=== PATIENT | male | born 1975 | race Caucasian/White ===

== ENCOUNTER 2018-01-27 17:49 | Emergency (ER) | payer OTHER ==
[2018-01-27 17:58] VITALS: BP 129/79; BMI 32.3
--- NOTE | 2018-01-27 18:30 | DR.EXTPAIN ---
HPI - Time seen Time seen: 18:15 - PCP Primary Care Physician: VIOLETA (ROSEY) - HPI Comment HPI Comment: NO LOC. HAD GI BLEED FIRST DAY THAT IS RESOLVE. MILD LEFT SIDED ABDOMINAL PAIN. - Complaint/Symptoms Chief Complaint Doctor Comments: FELL 2 DAYS AGO. PAIN MID BACK, CHEST AND LEFT ABDOMEN. Chief Complaint:: PT C/O FALLING 7 FT OFF A LADDER ONTO A WALL. PT STATES HE IS HURTING MID THROACIC AREA, LT RIBS, AND LUNG (HAVING TROUBLE BREATHING). PT STATES THIS HAPPENED 2 DAYS AGO. PT STATES HE HAS BEEN HAVING PAIN WHEN TAKING A DEEO BREATH AND HE ALSO STATES HE WAS PASSING LOTS OF BLOOD IN HIS STOOL, BUT IT HAS SENSE STOPPED - Nurses notes reviewed Nurses Notes Review: Yes - Source History Provided: Patient - Mode of arrival Mode of Arrival: Ambulatory - Timing Onset of Chief Complaint: 01/25/18 - Context History of: Arthritis - Associated signs and symptoms Associated Signs and Symptoms: Pain PMH - PMH Past Medical History: No Past Surgical History: Yes Surgical History: Ortho Surgery - Family History History of Family Medical Conditions: Yes Family Medical History: Diabetes Mellitus, Cancer, Hypertension - Social History Does any household member use tobacco: No Alcohol Use: None Do you use any recreational Drugs:: No Lives With: Family Lives Where: Home - infectious screening In the last 2 months have you had wt loss of >10#?: NO Have you had fever, night sweats or hemotysis?: No Have you traveled outside the country in the last 6 months?: No Isolation: Standard ROS - Review of Systems Constitutional: No Symptoms Reported Eyes: No Symptoms Reported ENTM: No Symptoms Reported Respiratoy: No Symptoms Reported Cardiovascular: Chest Pain (CHEST WALL AND RIB LT PAIN.) Gastrointestinal/Abdominal: Abdominal Pain, Other (LEFT ABDOMINAL PAIN.). negative: Diarrhea, Nausea, Vomiting Genitourinary: No Symptoms Reported Neurological: No Symptoms Reported Musculoskeletal: Back Pain, Muscle Pain, Back Integumentary: No Symptoms Reported Hematologic/Lymphatic: No Symptoms Reported Endocrine: No Symptoms Reported All Other Systems: Reviewed and Negative PE - Vital Signs Vitals: Temperature 98.9 F Pulse Rate 96 Respiratory Rate 20 Blood Pressure 129/79 O2 Sat by Pulse Oximetry 95 - General Limitations: No Limitations General Appearance: Alert - Head Head Exam: Normal Inspection - Eyes Eye exam: Normal Appearance - ENT ENT Exam: Normal External Ear Exam - Neck Neck Exam: Trachea Midline - Chest Chest Inspection: Symmetric Chest Wall Rise - Respiratory Respiratory Exam: Normal Lung Sounds Bilat, Chest Wall Tenderness (LEFT LOWER RIBS) Respiratory Exam: Bilateral Clear to Auscultation - Cardiovascular Cardiovascular Exam: Regular Rate, Normal Rhythm, Normal Heart Sounds - Abdominal Exam Abdominal Exam: Normal Bowel Sounds, Soft, Tenderness Abdominal Tenderness: Diffuse, Mild - Back Back Exam: Tenderness (MID THORACIC SPINE.) - Neurological Neurological Exam: Alert, Oriented X3 - Psychiatric Psychiatric Exam: Normal Affect, Normal Mood - Skin Skin Exam: Normal Color MDM - Differential Diagnosis Differential Diagnosis: Contusion, Fracture, Neurovascular Injury, Sprain Course - Treatment Treatment: SEE ORDERS. - Education/Counseling Education/Counseling: Patient, Education Educated On: Diagnosis, Needs for Follow Up ROR - XRAY XRAY Interpreted by: Radiologist XRAY Findings: REPORT DISCUSS WITH PATIENT. - Diagnosis Discharge Problem: Chest wall pain, Musculoskeletal pain Back pain Qualifiers: Back pain location: thoracic back pain Chronicity: acute Back pain laterality: bilateral Qualified Code(s): M54.6 - Pain in thoracic spine Chest pain Qualifiers: Chest pain type: other chest pain Qualified Code(s): R07.89 - Other chest pain Rib contusion Qualifiers: Encounter type: initial encounter Laterality: left Qualified Code(s): S20.212A - Contusion of left front wall of thorax, initial encounter Strain of thoracic region Qualifiers: Encounter type: initial encounter Qualified Code(s): S29.019A - Strain of muscle and tendon of unspecified wall of thorax, initial encounter - Discharge Plan Condition: Stable Prescriptions: Cyclobenzaprine HCl [FLEXERIL 10 MG *] 10 mg PO TID PRN #20 tab PRN Reason: Ibuprofen [MOTRIN TAB 800 MG *] 800 mg PO Q8H PRN #30 tab PRN Reason: Pain/Inflammation - Follow ups/Referrals Follow ups/Referrals: SHIRA MCDANIEL [Primary Care Provider] - 01/28/18 - Instructions Instructions: Chest Wall Pain, [id number], Thoracic Strain, [id number], Musculoskeletal Pain, Back Pain, Adult, [id number], Rib Contusion Additional Instructions: TRETURN TO ED IF WORSE.
--- NOTE | 2018-01-27 19:04 | CT ---
CT chest, abdomen, and pelvis without contrast Indication: Fall from ladder, complaints of back pain, difficulty breathing Comparison: None Technique: CT images of the chest, abdomen, and pelvis were obtained without contrast. Automatic expo sure control was utilized. Findings: No acute cortical disruption or malalignment is identified. Previous L5-S1 anterior surgica l fusion is intact. There are mild degenerative changes of the SI joints. Chest: Evaluation of the mediastinal structures is limited without contrast accounting for this, ther e is no evidence for mediastinal hematoma. The thoracic aorta is grossly normal for technique. No per icardial thickening or pericardial effusion. There are calcified mediastinal and left hilar lymph nod es, in keeping with chronic granulomatous disease. There is a calcified left upper lobe granuloma. As luis eduardo from mild dependent atelectasis, the lungs are otherwise clear. No pleural effusion or pneumothor ax. The major airways are patent. Abdomen/pelvis: Evaluation for solid organ injury is limited without IV contrast. Accounting for this , the liver, gallbladder, spleen, stomach, duodenum, pancreas, adrenals, and kidneys demonstrate no e vidence for acute injury. No marked bowel thickening. No evidence for free air or free fluid. Normal appendix. The urinary bladder, prostate, and rectum are unremarkable. Normal caliber of the abdominal aorta. Impression: No evidence for acute traumatic injury within the chest, abdomen, or pelvis, within the constraints o f a noncontrast study. Chronic granulomatous disease and other findings as above. Reported By:
== END 2018-01-27 19:28 | disposition home or self-care (01) ==
LOC: ER 18:04
DX: S20.212A Contusion of left front wall of thorax, initial encounter (principal); S29.019A Strain of muscle and tendon of unspecified wall of thorax, initial encounter; R07.89 Other chest pain; M54.6 Pain in thoracic spine; L92.9 Granulomatous disorder of the skin and subcutaneous tissue, unspecified; W11.XXXA Fall on and from ladder, initial encounter; Y92.9 Unspecified place or not applicable
CPT/HCPCS: 71250; 74176; 99282; 99283